=== PATIENT | female | born 1990 | race African-American/Black ===

== ENCOUNTER 2020-07-30 03:10 | Inpatient (IN) | payer MEDICAID ==
[~2020-07-30] VITALS: Ht 167.6 cm; Wt 79.4 kg
[2020-07-30] MEDS ORDERED: ONDANSETRON HCL 4MG/2ML INJ IV ONE (04:00)
[2020-07-30] MEDS ORDERED: SODIUM CHLORIDE 0.9% 1,000 ML IV ONE ×2 (04:00→06:15)
[2020-07-30] MEDS ORDERED: MORPHINE SULFATE 4 MG/ML CPJ (NOT FOR IM USE) IV ONE ×2 (04:00→06:30)
[2020-07-30 04:19] LABS: HEMATOCRIT. 31.8 % (36.0-48.0); HEMOGLOBIN. 10.3 g/dL (12.0-16.0); MEAN CORPUSCULAR HEMOGLOBIN 24.3 pg (28.0-32.0); MEAN PLATELET VOLUME 8.4 fl (7.4-10.4); PLATELET 254 x1000/uL (130-400); RED BLOOD CELL COUNT 4.24 mill/uL (4.2-5.4); RED CELL DISTRIBUTION WIDTH 21.8 % (11.6-14.6)
[2020-07-30 04:24] LABS: CHLORIDE 108 mEq/L (98-107)
[2020-07-30 04:30] LABS: PLATELET ESTIMATE NORMAL
[2020-07-30 04:49] LABS: B-HCG QUANTITATIVE 24083 mIU/mL (<3)
[2020-07-30 08:00] VITALS: BP 109/68
[2020-07-30 10:30] VITALS: BP 109/68
[2020-07-30 12:00] VITALS: BP 104/60
[2020-07-30] MEDS ORDERED: ONDANSETRON HCL 4MG/2ML INJ IV PRN (12:45)
[2020-07-30] MEDS ORDERED: DIPHENHYDRAMINE 50MG/ML VIAL IV PRN (12:45)
[2020-07-30] MEDS ORDERED: MAGNESIUM/ALUMINUM HYDROXIDE/SIMETHICONE 30ML UDC PO PRN (12:45)
[2020-07-30] MEDS ORDERED: ACETAMINOPHEN 325MG TABLET PO PRN (12:45)
[2020-07-30] MEDS ORDERED: ZOLPIDEM TARTRATE 5MG TABLET PO PRN (12:45)
[2020-07-30] MEDS: ACETAMINOPHEN 325MG TABLET PO PRN ×2 (14:24→18:05)
[2020-07-30] MEDS ORDERED: METHOTREXATE SODIUM/PF 50 MG/2 ML VIAL IM SCH (16:00)
[2020-07-31] VITALS: BP 101/56
[2020-07-31 04:00] VITALS: BP 98/52
[2020-07-31] MEDS: ACETAMINOPHEN 325MG TABLET PO PRN ×2 (06:09→12:13)
[2020-07-31 07:01] LABS: HEMATOCRIT. 28.6 % (36.0-48.0); HEMOGLOBIN. 9.6 g/dL (12.0-16.0); MEAN CORPUSCULAR HEMOGLOBIN 25.1 pg (28.0-32.0); PLATELET 219 x1000/uL (130-400); RED BLOOD CELL COUNT 3.82 mill/uL (4.2-5.4); RED CELL DISTRIBUTION WIDTH 21.9 % (11.6-14.6)
[2020-07-31 08:00] VITALS: BP 107/67
[2020-07-31 12:00] VITALS: BP 110/58
[2020-07-31 16:00] VITALS: BP 108/56
[2020-07-31 16:38] LABS: PLATELET ESTIMATE NORMAL
[2020-07-31 17:34] VITALS: BP 116/64
== END 2020-07-31 18:35 | disposition home or self-care (01) | DRG 566 ==
LOC: ER 03:10 → ENRESERV 07:50 → 8WST 08:37
PROVIDERS: ADMIT Obstetrics & Gynecology; ATTEND Obstetrics & Gynecology
DX: O00.90 Unspecified ectopic pregnancy without intrauterine pregnancy (principal); O46.90 Antepartum hemorrhage, unspecified, unspecified trimester; Z82.49 Family history of ischemic heart disease and other diseases of the circulatory system
CPT/HCPCS: 36415; 76801; 80053; 84702; 85025; 86850; 86900; 99291; J2270; J2405; J7030; J9260

== ENCOUNTER 2020-08-02 12:31 | Emergency (ER) | payer MEDICAID ==
[~2020-08-02] VITALS: Ht 167.6 cm; Wt 82.0 kg
[2020-08-02] MEDS ORDERED: ONDANSETRON 4MG ODT PO ONE (13:00)
[2020-08-02] MEDS ORDERED: METHOTREXATE SODIUM/PF 50 MG/2 ML VIAL IM ONE (13:00)
[2020-08-02 13:30] VITALS: BP 116/62
== END 2020-08-02 15:16 | disposition home or self-care (01) ==
LOC: ER 12:31
DX: Z13.89 Encounter for screening for other disorder (principal)
CPT/HCPCS: 96372; 99283; J9260; Q0162

== ENCOUNTER 2020-08-05 12:30 | Inpatient (IN) | payer MEDICAID ==
[~2020-08-05] VITALS: Ht 167.6 cm; Wt 82.6 kg
[2020-08-05] MEDS ORDERED: SODIUM CHLORIDE 0.9% 1,000 ML IV ONE ×2 (13:00→13:15)
[2020-08-05] MEDS ORDERED: ONDANSETRON HCL 4MG/2ML INJ IV ONE (13:00)
[2020-08-05] MEDS ORDERED: MORPHINE SULFATE 4 MG/ML CPJ (NOT FOR IM USE) IV ONE (13:00)
[2020-08-05 13:39] LABS: CHLORIDE 105 mEq/L (98-107); HEMATOCRIT. 31.4 % (36.0-48.0); HEMOGLOBIN. 10.3 g/dL (12.0-16.0); MEAN CORPUSCULAR HEMOGLOBIN 24.6 pg (28.0-32.0); MEAN CORPUSCULAR VOLUME 75.1 fL (81.0-99.0); MEAN PLATELET VOLUME 8.4 fl (7.4-10.4); PLATELET 303 x1000/uL (130-400); RED BLOOD CELL COUNT 4.18 mill/uL (4.2-5.4); RED CELL DISTRIBUTION WIDTH 21.2 % (11.6-14.6)
[2020-08-05 14:05] LABS: B-HCG QUANTITATIVE 27582 mIU/mL (<3)
[2020-08-05 15:01] LABS: PLATELET ESTIMATE NORMAL
[2020-08-05 15:01] LABS: PARTIAL THROMBOPLASTIN TIME 28.8 sec (23.4-31.0); PROTHROMBIN TIME 10.9 sec (9.6-11.0)
[2020-08-05] MEDS ORDERED: ONDANSETRON HCL 4MG/2ML INJ IV PRN ×2 (17:00→19:45)
[2020-08-05] MEDS ORDERED: LIDOCAINE HCL 1% 20ML VIAL (Pyxis) INJ ONE (17:03)
[2020-08-05] MEDS ORDERED: MIDAZOLAM HCL 2 MG/2 ML VIAL ONE (17:03)
[2020-08-05] MEDS ORDERED: PROPOFOL 200MG/20ML VIAL IV ONE (17:03)
[2020-08-05] MEDS ORDERED: FENTANYL CITRATE/PF 50MCG/ML 2ML VIAL ONE ×2 (17:03→19:10)
[2020-08-05] MEDS ORDERED: ROCURONIUM BROMIDE 10MG/ML VIAL 5ML IV ONE (17:03)
[2020-08-05] MEDS ORDERED: SUCCINYLCHOLINE CHLORIDE 200MG/10ML IV ONE (17:04)
[2020-08-05] MEDS ORDERED: CEFAZOLIN SODIUM 1000MG/VIAL ONE (17:04)
[2020-08-05] MEDS ORDERED: DEXAMETHASONE 4MG/ML 1ML VIAL ONE (17:48)
[2020-08-05] MEDS ORDERED: ONDANSETRON HCL 4MG/2ML INJ ONE (17:48)
[2020-08-05] MEDS ORDERED: GLYCOPYRROLATE 0.2 MG/ML 2ML VIAL ONE (18:33)
[2020-08-05] MEDS ORDERED: NEOSTIGMINE METHYLSULFATE 1MG/ML 10 ML VIAL ONE (18:43)
[2020-08-05] MEDS ORDERED: KETOROLAC 30MG/ML VIAL ONE (18:44)
[2020-08-05] MEDS ORDERED: SKIN ADHESIVE 0.7 GM EA TOP ONE (19:01)
[2020-08-05] MEDS: HYDROMORPHONE HCL/PF 2MG/ML CPJ IV PRN ×4 (19:20→19:52)
[2020-08-05] MEDS ORDERED: ACETAMINOPHEN 650MG SUPP PR PRN (19:45)
[2020-08-05] MEDS ORDERED: MEPERIDINE HCL/PF 25MG/ML CPJ ONE (19:47)
[2020-08-05] MEDS ORDERED: MEPERIDINE HCL/PF 25MG/ML CPJ IV PRN (19:47)
[2020-08-05 19:48] LABS: CLARITY URINE CLEAR (CLEAR); COLOR URINE YELLOW (YELLOW); KETONES URINE NEGATIVE (NEGATIVE); LEUKOCYTE ESTERASE URINE NEGATIVE (NEGATIVE); NITRITE URINE NEGATIVE (NEGATIVE); OCCULT BLOOD URINE NEGATIVE (NEGATIVE); PH URINE 5.5 (4.5-8.0); PROTEIN URINE NEGATIVE (NEGATIVE); SPECIFIC GRAVITY URINE 1.012 (1.005-1.030); UROBILINOGEN URINE 0.2 E.U./dL (0.2-1.0)
[2020-08-05] MEDS ORDERED: CEFAZOLIN 1000MG PREMIX 50 ML IV SCH (21:00)
[2020-08-05] MEDS: MORPHINE SULFATE 2 MG/ML CPJ (NOT FOR IM USE) IV PRN (21:17)
[2020-08-06] VITALS (7 sets, daily range): BP systolic 104–127; BP diastolic 61–84
[2020-08-06] MEDS: MORPHINE SULFATE 2 MG/ML CPJ (NOT FOR IM USE) IV PRN ×6 (00:26→21:09)
[2020-08-06] MEDS: DEXT 5%/0.45% NACL KCL 20MEQ/L 1,000 ML IV SCH ×3 (00:40→09:50)
[2020-08-06] MEDS: CEFAZOLIN 1000MG PREMIX 50 ML IV SCH ×3 (01:30→18:30)
[2020-08-06 06:32] LABS: HEMATOCRIT. 25.8 % (36.0-48.0); HEMOGLOBIN. 8.6 g/dL (12.0-16.0); MEAN CORPUSCULAR HEMOGLOBIN 25.1 pg (28.0-32.0); MEAN CORPUSCULAR VOLUME 75.3 fL (81.0-99.0); MEAN PLATELET VOLUME 7.8 fl (7.4-10.4); PLATELET 244 x1000/uL (130-400); RED BLOOD CELL COUNT 3.42 mill/uL (4.2-5.4); RED CELL DISTRIBUTION WIDTH 21.5 % (11.6-14.6)
[2020-08-06 19:13] LABS: PLATELET ESTIMATE NORMAL
[2020-08-07] VITALS: BP 115/65
[2020-08-07] MEDS: MORPHINE SULFATE 2 MG/ML CPJ (NOT FOR IM USE) IV PRN ×2 (00:39→03:49)
[2020-08-07] MEDS: DEXT 5%/0.45% NACL KCL 20MEQ/L 1,000 ML IV SCH ×2 (02:05→23:43)
[2020-08-07 04:00] VITALS: BP 110/78
[2020-08-07 08:00] VITALS: BP 120/76
[2020-08-07] MEDS: OXYCODONE HCL/ACETAMINOPHEN 5/325MG TABLET PO PRN ×3 (08:49→23:43)
[2020-08-07 12:00] VITALS: BP 122/84
[2020-08-07 16:00] VITALS: BP 104/72
[2020-08-07 20:00] VITALS: BP 124/74
[2020-08-08] VITALS: BP 115/65
[2020-08-08 04:00] VITALS: BP 112/69
[2020-08-08 05:30] LABS: EOSINOPHILS % 1.8 % (0.0-5.0); HEMATOCRIT. 24.7 % (36.0-48.0); HEMOGLOBIN. 8.3 g/dL (12.0-16.0); LYMPHOCYTES % 35.1 % (20.0-50.0); MEAN CORPUSCULAR HEMOGLOBIN 25.2 pg (28.0-32.0); MEAN CORPUSCULAR VOLUME 75.4 fL (81.0-99.0); MEAN PLATELET VOLUME 7.6 fl (7.4-10.4); MONOCYTES % 4.8 % (2.0-8.0); NEUTROPHILS % 57.3 % (40.0-76.0); PLATELET 262 x1000/uL (130-400); RED BLOOD CELL COUNT 3.28 mill/uL (4.2-5.4)
[2020-08-08] MEDS ORDERED: IBUP-2030 MT (07:43)
[2020-08-08 07:52] VITALS: BP 120/84
[2020-08-08 08:00] VITALS: BP 120/84
== END 2020-08-08 09:30 | disposition home or self-care (01) | DRG 545 ==
LOC: ER 12:30 → 6EST 13:03 → ENRESERV 17:42
PROVIDERS: ADMIT Obstetrics & Gynecology; ATTEND Obstetrics & Gynecology
PROC: 0UB64ZZ Excision of Left Fallopian Tube, Percutaneous Endoscopic Approach (ICD-10-PCS; principal; 2020-08-05)
PROC: 10T24ZZ Resection of Products of Conception, Ectopic, Percutaneous Endoscopic Approach (ICD-10-PCS; 2020-08-05)
DX: O00.102 Left tubal pregnancy without intrauterine pregnancy (principal); K66.1 Hemoperitoneum; O08.89 Other complications following an ectopic and molar pregnancy; Z60.2 Problems related to living alone; Z20.822 Contact with and (suspected) exposure to COVID-19; N83.201 Unspecified ovarian cyst, right side; Z82.49 Family history of ischemic heart disease and other diseases of the circulatory system; Z87.59 Personal history of other complications of pregnancy, childbirth and the puerperium; Z98.891 History of uterine scar from previous surgery
CPT/HCPCS: 36415; 76830; 76856; 80053; 81003; 84702; 85025; 86850; 86900; 87426; 88305; 99285; J0330; J0690; J1100; J1170; J1885; J2175; J2250; J2270; J2405; J2704; J2710; J3010; J3490; J7030

== ENCOUNTER 2021-11-08 08:03 | Emergency (ER) | payer MEDICAID, OTHER ==
[~2021-11-08] VITALS: Ht 167.6 cm; Wt 88.0 kg
[~2021-11-08 08:03] MED LIST: IBUP-2030 MT
[2021-11-08 08:25] VITALS: BP 130/87
[2021-11-08 09:41] LABS: CLARITY URINE CLEAR (CLEAR); COLOR URINE YELLOW (YELLOW); KETONES URINE NEGATIVE (NEGATIVE); LEUKOCYTE ESTERASE URINE 2+ (NEGATIVE); NITRITE URINE NEGATIVE (NEGATIVE); OCCULT BLOOD URINE TRACE (NEGATIVE); PH URINE 5.5 (4.5-8.0); PROTEIN URINE NEGATIVE (NEGATIVE); SPECIFIC GRAVITY URINE 1.021 (1.005-1.030); UROBILINOGEN URINE 0.2 E.U./dL (0.2-1.0)
[2021-11-08] MEDS: SODIUM CHLORIDE 0.9% 1,000 ML IV ONE (10:20)
[2021-11-08] MEDS: ONDANSETRON HCL 4MG/2ML INJ IV ONE (10:20)
[2021-11-08] MEDS: FAMOTIDINE 20MG/2ML VIAL IV SCH (10:20)
[2021-11-08 10:21] LABS: HEMATOCRIT. 37.7 % (36.0-48.0); HEMOGLOBIN. 12.2 g/dL (12.0-16.0); MEAN CORPUSCULAR HEMOGLOBIN 26.3 pg (28.0-32.0); MEAN PLATELET VOLUME 8.3 fl (7.4-10.4); PLATELET 244 x1000/uL (130-400); RED BLOOD CELL COUNT 4.65 mill/uL (4.2-5.4); RED CELL DISTRIBUTION WIDTH 18.4 % (11.6-14.6)
[2021-11-08 10:32] LABS: CHLORIDE 107 mEq/L (98-107)
[2021-11-08 10:35] LABS: PROTHROMBIN TIME 10.7 sec (9.6-11.0)
[2021-11-08 10:42] LABS: PLATELET ESTIMATE NORMAL
[2021-11-08] MEDS: CEFTRIAXONE SODIUM 500 MG/VIAL IM ONE (11:56)
[2021-11-08] MEDS: DOXYCYCLINE HYCLATE 100MG CAPSULE PO ONE (11:56)
== END 2021-11-08 12:04 | disposition home or self-care (01) ==
LOC: ER 08:03
DX: O67.8 Other intrapartum hemorrhage (principal); Z3A.01 Less than 8 weeks gestation of pregnancy; Z98.890 Other specified postprocedural states
CPT/HCPCS: 36415; 80053; 81003; 81025; 83605; 83690; 85025; 85610; 96361; 96372; 96374; 96375; 99284; J0696; J2405; J3490; J7030